=== PATIENT | male | born 1955 | race Asian ===

== ENCOUNTER 2020-01-27 08:12 | Day surgery (SDC) | payer OTHER, SELFPAY ==
[~2020-01-27] VITALS: Ht 188 cm; Wt 93.4 kg
[2020-01-27] MEDS ORDERED: fentaNYL citrate 0.05 MG/ML VIAL ONE (09:39)
[2020-01-27] MEDS ORDERED: LIDOCAINE 2% 100 MG/5 ML UJET TP ONE ×2 (09:39→13:40)
[2020-01-27] MEDS ORDERED: MIDAZOLAM 2 MG/2 ML VIAL ONE (09:39)
[2020-01-27] MEDS ORDERED: MIDAZOLAM 2 MG/2 ML VIAL IVP ONE (13:40)
[2020-01-27] MEDS ORDERED: fentaNYL citrate 0.05 MG/ML VIAL IVP ONE (13:40)
== END 2020-01-27 11:40 | disposition home or self-care (01) ==
LOC: MDS 08:12 → MFCC 08:12 → MDS 11:40
PROVIDERS: ATTEND Internal Medicine Gastroenterology
DX: Z12.11 Encounter for screening for malignant neoplasm of colon (principal); K21.9 Gastro-esophageal reflux disease without esophagitis; K29.50 Unspecified chronic gastritis without bleeding; F17.210 Nicotine dependence, cigarettes, uncomplicated; Z90.49 Acquired absence of other specified parts of digestive tract; Z20.828 Contact with and (suspected) exposure to other viral communicable diseases
CPT/HCPCS: 43239; 45378; 88305; 88312; 88313; J2250; J3010; U0003

== ENCOUNTER 2021-08-23 07:08 | Day surgery (SDC) | payer OTHER, SELFPAY ==
[~2021-08-23] VITALS: Ht 182.9 cm; Wt 86.2 kg
[2021-08-23] MEDS ORDERED: MIDAZOLAM 5 MG/5 ML VIAL ONE (07:43)
[2021-08-23] MEDS ORDERED: fentaNYL citrate 0.05 MG/ML VIAL ONE ×2 (07:43→07:44)
[2021-08-23] MEDS ORDERED: diphenhydrAMINE 50 MG/ML VIAL ONE (07:43)
[2021-08-23] MEDS ORDERED: SIMETHICONE 40 MG/0.6 ML ONE (08:05)
[2021-08-23] MEDS ORDERED: fentaNYL citrate 0.05 MG/ML VIAL IVP ONE (13:15)
[2021-08-23] MEDS ORDERED: MIDAZOLAM 2 MG/2 ML VIAL IVP ONE (13:15)
== END 2021-08-23 11:46 | disposition home or self-care (01) ==
LOC: MMU 07:08 → MDS 07:08
PROVIDERS: ATTEND Internal Medicine Gastroenterology
DX: K31.9 Disease of stomach and duodenum, unspecified (principal); B18.1 Chronic viral hepatitis B without delta-agent; I10 Essential (primary) hypertension; E11.9 Type 2 diabetes mellitus without complications; Z90.49 Acquired absence of other specified parts of digestive tract; F17.210 Nicotine dependence, cigarettes, uncomplicated; Z79.899 Other long term (current) drug therapy; Z20.822 Contact with and (suspected) exposure to COVID-19
CPT/HCPCS: 43239; 87426; J2250; J3010; 88305; 88312; 88313; 88342; J1200